=== PATIENT | male | born 1945 | race Caucasian/White ===

== ENCOUNTER 2017-06-06 10:51 | Emergency (ER) | payer OTHER ==
[~2017-06-06] VITALS: Ht 162.6 cm; Wt 59.0 kg
--- NOTE | 2017-06-06 11:27 | ED NECK/BACK PAIN COMPLAINT ---
History of Present Illness General Chief Complaint: Low Back Pain/Injury Stated Complaint: LOW BACK PAIN Source: patient, family Exam Limitations: no limitations Vital Signs & Intake/Output Vital Signs & Intake/Output Vital Signs Date Time Temp Pulse Resp B/P B/P Pulse O2 O2 Flow FiO2 Mean Ox Delivery Rate 06/06 1412 97.0 52 16 121/79 97 Room Air 06/06 1248 Room Air Room Air 06/06 1117 97.3 62 20 117/74 99 Room Air Allergies Coded Allergies: NO KNOWN ALLERGIES (09/18/11) Reconcile Medications Cyclobenzaprine HCl 10 MG TABLET 1 TAB PO QPM PRN SPASM DO NOT DRIVE WITH THIS MEDICATION Naproxen 500 MG TABLET 1 TAB PO BID PRN PAIN TAKE WITH FOOD Triage Note: C/O LLEFT SIDED LOW BACK PAIN SINCE YESTERDAY. DENIES URINARY SXS, FALL OR INJURY. Triage Nurses Notes Reviewed? yes Onset: Abrupt Duration: day(s): (2) Timing: multiple episodes today Quality/Severity: mild, moderate Location: LEFT LOW BACK Radiation: none Method of Injury: unknown Modifying Factors: movement, rest HPI: This is a 71-year-old male with history of bilateral renal cysts, bilateral hip replacements 2, rheumatoid arthritis presents via chief complaint of left low back pain. Patient states he's been noticing on and off for a few weeks but acutely got worse yesterday. He states in the middle of night he woke up with severe pain around 2:00 and took 2 Tylenol which gave him some relief. No fever or chills. He did notice some dark or perhaps play urine yesterday morning. No history of kidney stones or urinary infections. Denies any dysuria. Patient denies any trauma or fall. Pain is worse with sitting down and with certain positions. Past History Travel History Traveled to [place] past 21 day No Medical History Any Pertinent Medical History? see below for history Neurological: NONE EENT: NONE Cardiovascular: NONE Respiratory: NONE Gastrointestinal: NONE Hepatic: NONE Renal: NONE Musculoskeletal: NONE Psychiatric: NONE Endocrine: NONE Influenza Vaccine: 08/09/11 Surgical History Surgical History: hip replacement Psychosocial History Who do you live with Spouse Services at Home None What is your primary language Ivorian Tobacco Use: Never used ETOH Use: denies use Family History Hx Contributory? No Review of Systems Review of Systems Constitutional: Denies: chills, fever. Eyes: Reports: no symptoms. Ears, Nose, Throat, Mouth: Reports: no symptoms. Respiratory: Denies: cough, short of breath. Cardiovascular: Reports: no symptoms. Gastrointestinal/Abdominal: Denies: abdominal pain. Musculoskeletal: Reports: back pain. Skin: Reports: no symptoms. Neurological/Psychological: Denies: anxiety, confusion. All Other Systems: Reviewed and Negative Physical Exam Physical Exam General Appearance: well developed/nourished, mild distress Head: atraumatic Eyes: Bilateral: PERRL, EOMI. Ears, Nose, Throat, Mouth: hearing grossly normal Neck: normal inspection, supple, full range of motion Respiratory: normal breath sounds Cardiovascular: regular rate/rhythm Gastrointestinal: soft, non-tender Back: normal inspection Extremities: normal range of motion Neurologic/Psych: awake, alert, oriented x 3, normal mood/affect Skin: intact, normal color, warm/dry Diagram Body: 1) TENDER TO PALPATION Progress Differential Diagnosis: herniated disc, myofascial strain, pyelo/UTI, T/L spine injury, ureterolithiasis, PYELONEPHRITIS Plan of Care: Orders Procedure Date/time Status URINALYSIS 06/06 1135 Complete COMPREHENSIVE METABOLIC PANEL 06/06 1135 Complete CBC WITHOUT DIFFERENTIAL 06/06 1135 Complete Laboratory Tests 06/06/17 1210: Anion Gap 10, Estimated GFR > 60, BUN/Creatinine Ratio 15.0, Glucose 94, Calcium 9.5, Total Bilirubin 0.5, AST 37, ALT 35, Alkaline Phosphatase 63, Total Protein 6.5, Albumin 4.1, Globulin 2.4, Albumin/Globulin Ratio 1.7, CBC w Diff NO MAN DIFF REQ, RBC 4.63 L, MCV 89.1, MCH 30.1, RDW 13.9, MPV 7.0 L, Gran % 62.9, Lymphocytes % 27.0, Monocytes % 7.4, Eosinophils % 1.8, Basophils % 0.9, Absolute Granulocytes 2.8, Absolute Lymphocytes 1.2, Absolute Monocytes 0.3, Absolute Eosinophils 0.1, Absolute Basophils 0, PUBS MCHC 33.8, Urine Color STRAW, Urine Clarity CLEAR, Urine pH 6.5, Ur Specific [place] <= 1.005, Urine Protein NEG, Urine Ketones NEG, Urine Nitrite NEG, Urine Bilirubin NEG, Urine Urobilinogen 0.2, Ur Leukocyte Esterase NEG, Ur Microscopic SEDIMENT EXAMINED, Micro UA Comment NEGATIVE MICROSCOPIC, Urine Hemoglobin TRACE-LYSED H, Urine Glucose NEG X-ray shows degenerative changes, no acute findings urinalysis is positive for trace lysed hemoglobin. No infection. H&H within normal limits. Function within normal limits. Patient feels improved after Flexeril. I suspect musculoskeletal origin of pain. He will however follow up with his doctor on Thursday for reevaluation. (MCKENZIE YEAGER,LUIS FELIPE) Diagnostic Imaging: Viewed by Me: Radiology Read. Discussed w/RAD: Radiology Read. Radiology Impression: PATIENT: HELEN TOM PRESENT AGE: 71 PATIENT ACCOUNT NO: [id number] : 47 LOCATION: [facility] ORDERING PHYSICIAN: LUIS FELIPE RINCON MD SERVICE DATE: 06/06/17 EXAM TYPE: RAD - XRY -LUMBOSACRAL SPINE AP & LAT EXAMINATION: XR LUMBOSACRAL SPINE CLINICAL INFORMATION: Severe left lower back pain. History of rheumatoid arthritis. Multiple hip surgeries. Question compression fracture. COMPARISON: None TECHNIQUE: AP and lateral views of the lumbosacral spine were obtained. FINDINGS : Transitional vertebral body is seen at the lumbosacral junction with 6 lumbar- type nonrib-bearing vertebral bodies seen. There is a mild convex right lumbar scoliosis. No acute fracture or dislocation is seen. There is moderate degenerative disc disease at L2-L3 and L4-L5 and mild degenerative disc disease at the remaining lumbar levels. Mild facet arthropathy is seen throughout the mid and lower lumbar spine. Bilateral total hip arthroplasties are partially imaged. Mild degenerative changes as seen in the sacroiliac joints. Large amount of fecal material is seen scattered throughout the colon. IMPRESSION: 1. Multilevel mild to moderate degenerative disc disease throughout the lumbar spine. 2. Mild facet arthropathy in the mid and lower lumbar spine. 3. Status post bilateral total hip arthroplasty. DICTATED BY: JL VAZQUEZ MD DATE/ TIME DICTATED:06/06/171312 PROCESS PLANNER:KARLENE DATE/TIME TRANSCRIBED: 06/06/171312 CONFIDENTIAL, DO NOT COPY WITHOUT APPROPRIATE AUTHORIZATION. < Electronically signed in Other Vendor System> SIGNED BY: JL VAZQUEZ MD 06/06/17 1320 Departure Departure Time of Disposition: 1403 Disposition: HOME OR SELF CARE Condition: Stable Clinical Impression Primary Impression: Acute low back pain Referrals: DONA YEAGER,LIZ Haney (PCP/Family) Additional Instructions: Take the naproxen and Flexeril as directed. Please follow up the results of her CAT scan with your doctor. Return to the ER for any changing or worsening symptoms. Departure Forms: Customer Survey General Discharge Information Prescriptions: Current Visit Scripts Cyclobenzaprine HCl 1 TAB PO QPM PRN SPASM #[address] WITH THIS MEDICATION Naproxen 1 TAB PO BID PRN PAIN #20 TAB TAKE WITH FOOD
[2017-06-06 12:21] LABS: ABSOLUTE BASOPHIL COUNT 0 /CUMM (0.0-0.2); ABSOLUTE EOSINOPHIL COUNT 0.1 /CUMM (0.0-0.7); ABSOLUTE GRANULOCYTE CT 2.8 /CUMM (1.4-6.5); ABSOLUTE LYMPH COUNT 1.2 /CUMM (1.2-3.4); ABSOLUTE MONOCYTE COUNT 0.3 /CUMM (0.10-0.60); BASOPHIL % 0.9 % (0.0-2.0); EOSINOPHIL % 1.8 % (0-5); GRANULOCYTE % 62.9 % (42.2-75.2); HEMATOCRIT 41.2 % (42-52); MEAN CORPUSCULAR HGB 30.1 PG (27.0-31.0); MEAN CORPUSCULAR HGB CONC 33.8 G/DL (33.0-37.0); MEAN CORPUSCULAR VOLUME 89.1 FL (80.0-94.0); PLATELET COUNT 228 /CUMM (130-400); RBC DISTRIBUTION WIDTH 13.9 % (11.5-14.5); RED BLOOD CELL CT 4.63 /CUMM (4.70-6.10); WHITE BLOOD CELL COUNT 4.5 /CUMM (4.8-10.8)
--- NOTE | 2017-06-06 13:20 | RADIOLOGY REPORT ---
EXAMINATION: XR LUMBOSACRAL SPINE CLINICAL INFORMATION: Severe left lower back pain. History of rheumatoid arthritis. Multiple hip surgeries. Question compression fracture. COMPARISON: None TECHNIQUE: AP and lateral views of the lumbosacral spine were obtained. FINDINGS: Transitional vertebral body is seen at the lumbosacral junction with 6 lumbar-type nonrib-bearing vertebral bodies seen. There is a mild convex right lumbar scoliosis. No acute fracture or dislocation is seen. There is moderate degenerative disc disease at L2-L3 and L4-L5 and mild degenerative disc disease at the remaining lumbar levels. Mild facet arthropathy is seen throughout the mid and lower lumbar spine. Bilateral total hip arthroplasties are partially imaged. Mild degenerative changes as seen in the sacroiliac joints. Large amount of fecal material is seen scattered throughout the colon. IMPRESSION: 1. Multilevel mild to moderate degenerative disc disease throughout the lumbar spine. 2. Mild facet arthropathy in the mid and lower lumbar spine. 3. Status post bilateral total hip arthroplasty.
[2017-06-06] MEDS ORDERED: NAPROXEN500 M2 PO ×2 (14:04→14:13)
[2017-06-06] MEDS ORDERED: CYCLOBENZAPRINE10 M1 PO ×2 (14:04→14:13)
[2017-06-06 14:12] VITALS: BP 121/79
== END 2017-06-06 14:13 ==
LOC: ERH 10:51
PROVIDERS: Emergency Medicine
DX: M54.5 Low back pain (principal)
CPT/HCPCS: 72100; 81001